=== PATIENT | female | born 1985 | race Hispanic/Latino ===

== ENCOUNTER 2023-02-01 20:38 | Inpatient (IN) | payer OTHER ==
[~2023-02-01] VITALS: Ht 144.8 cm; Wt 109.0 kg
[2023-02-01 20:54] VITALS: BP 135/60
[2023-02-01 21:21] VITALS: BP 135/60
[2023-02-01 22:13] LABS: BASOPHILS % (AUTO) 0.3 % (0.0-5.0); HEMATOCRIT 40.6 % (36-48); LYMPHOCYTES % (AUTO) 7.9 % (21.0-51.0); MEAN CORPUSCULAR HEMOGLOBIN 27.6 pg (27.0-33.0); MEAN CORPUSCULAR HGB CONC 33.3 g/dL (32.0-36.0); NEUTROPHILS % (AUTO) 88.3 % (40.0-77.0); PLATELET COUNT (AUTO) 244 K/uL (130-400); RED BLOOD CELL COUNT(AUTO) 4.89 MIL/uL (4.00-5.50); RED CELL DISTRIBUTION WIDTH 14.5 % (11.0-15.5); WHITE BLOOD COUNT (AUTO) 25.6 K/uL (4.8-10.8)
[2023-02-01] MEDS: MORPHINE 4 MG SYG IV PRN (22:13)
[2023-02-01] MEDS: LACTATED RINGERS 1000ML 1,000 ML IV SCH (22:13)
[2023-02-01] MEDS: ACETAMINOPHEN 325 MG TAB PO PRN (22:14)
[2023-02-01 22:25] LABS: INR 1.23 (0.85-1.15); PROTHROMBIN TIME 13.3 SEC (9.6-11.6)
[2023-02-01 22:27] LABS: PARTIAL THROMBOPLASTIN TIME 33.3 SEC (26.3-35.5)
[2023-02-01 22:40] LABS: CREATININE 1.2 mg/dL (0.5-1.5); MAGNESIUM 1.8 mg/dL (1.80-2.40); PHOSPHORUS 2.3 mg/dL (2.5-4.9); POTASSIUM 3.7 mmol/L (3.5-5.1)
[2023-02-01 22:51] LABS: APPEARANCE,URINE CLOUDY (CLEAR); BILIRUBIN,URINE NEGATIVE (NEGATIVE); COLOR,URINE LIGHT-ORANGE (YELLOW); GLUCOSE, URINE (UA) NEGATIVE (NEGATIVE); KETONES,URINE 5 mg/dL (NEGATIVE); LEUKOCYTE ESTERASE ,URINE 500 Leu/uL (NEGATIVE); NITRATE,URINE NEGATIVE (NEGATIVE); OCCULT BLOOD,URINE LARGE (NEGATIVE); PH,URINE 6.5 (5.0-8.0); PROTEIN,URINE 200 mg/dL (NEGATIVE); UROBILINOGEN,URINE 0.2 mg/dL (0.2-1.0)
[2023-02-01 22:57] LABS: BACTERIA,URINE FEW /HPF (None Seen); MUCUS,URINE RARE LPF (None Seen); RBC,URINE TNTC /HPF (0-1); SQUAMOUS EPITHELIAL CELL,UR FEW /HPF (0-2); WBC,URINE TNTC /HPF (0-1)
[2023-02-02] VITALS (7 sets, daily range): BP systolic 103–147; BP diastolic 46–80
[2023-02-02] MEDS: ACETAMINOPHEN 325 MG TAB PO PRN ×2 (03:27→20:02)
[2023-02-02 04:18] LABS: BASOPHILS % (AUTO) 0.3 % (0.0-5.0); EOSINOPHILS % (AUTO) 0.1 % (0.0-8.0); HEMATOCRIT 37.8 % (36-48); LYMPHOCYTES % (AUTO) 10.2 % (21.0-51.0); MEAN CORPUSCULAR HEMOGLOBIN 27.1 pg (27.0-33.0); MEAN CORPUSCULAR HGB CONC 32.3 g/dL (32.0-36.0); MEAN CORPUSCULAR VOLUME 83.8 fL (79-99); MONOCYTES % (AUTO) 3.3 % (3.0-13.0); NEUTROPHILS % (AUTO) 85.5 % (40.0-77.0); PLATELET COUNT (AUTO) 272 K/uL (130-400); RED BLOOD CELL COUNT(AUTO) 4.51 MIL/uL (4.00-5.50); RED CELL DISTRIBUTION WIDTH 14.6 % (11.0-15.5); WHITE BLOOD COUNT (AUTO) 22.1 K/uL (4.8-10.8)
[2023-02-02 04:46] LABS: CREATININE 1.1 mg/dL (0.5-1.5); POTASSIUM 3.9 mmol/L (3.5-5.1)
[2023-02-02] MEDS: ENOXAPARIN SODIUM 40 MG/0.4 ML SYRINGE SQ SCH (08:29)
[2023-02-02] MEDS: FAMOTIDINE 20MG VIAL IV SCH ×2 (08:29→20:03)
[2023-02-02] MEDS: MORPHINE 4 MG SYG IV PRN ×2 (08:29→17:12)
[2023-02-02] MEDS: ONDANSETRON 4MG INJ IV PRN ×2 (08:31→17:12)
[2023-02-02] MEDS: KETOROLAC 30MG VIAL (30MG/ML) IVP PRN (11:58)
[2023-02-02 14:22] LABS: HEMATOCRIT 36.4 % (36-48); MEAN CORPUSCULAR HEMOGLOBIN 27.4 pg (27.0-33.0); MEAN CORPUSCULAR HGB CONC 32.7 g/dL (32.0-36.0); MEAN CORPUSCULAR VOLUME 83.7 fL (79-99); RED BLOOD CELL COUNT(AUTO) 4.35 MIL/uL (4.00-5.50); RED CELL DISTRIBUTION WIDTH 14.7 % (11.0-15.5); WHITE BLOOD COUNT (AUTO) 20.9 K/uL (4.8-10.8)
[2023-02-02] MEDS: LACTATED RINGERS 1000ML 1,000 ML IV SCH (14:23)
[2023-02-02] MEDS: ZOSYN 3.375GM +NS 50ML IVPB SCH ×2 (15:34→22:26)
[2023-02-02] MEDS: TAMSULOSIN HCL 0.4 MG CAP.ER.24H PO SCH (20:03)
[2023-02-03] VITALS (12 sets, daily range): BP systolic 118–149; BP diastolic 52–74
[2023-02-03] MEDS: KETOROLAC 30MG VIAL (30MG/ML) IVP PRN ×3 (00:03→20:16)
[2023-02-03] MEDS: LACTATED RINGERS 1000ML 1,000 ML IV SCH ×3 (02:34→22:34)
[2023-02-03] MEDS: ZOSYN 3.375GM +NS 50ML IVPB SCH ×3 (05:33→22:31)
[2023-02-03 06:03] LABS: INR 1.1 (0.85-1.15); PROTHROMBIN TIME 11.9 SEC (9.6-11.6)
[2023-02-03] MEDS: MORPHINE 2 MG SYG IV PRN ×2 (06:04→18:17)
[2023-02-03] MEDS: ENOXAPARIN SODIUM 40 MG/0.4 ML SYRINGE SQ SCH (09:00)
[2023-02-03] MEDS: FAMOTIDINE 20MG VIAL IV SCH ×2 (10:03→20:10)
[2023-02-03] MEDS ORDERED: IODIXANOL 320 MG/ML 100 ML VIAL ONE (11:14)
[2023-02-03] MEDS ORDERED: FENTANYL CITRATE PF 50 MCG/1 ML 2ML VIAL ONE (11:15)
[2023-02-03] MEDS ORDERED: MIDAZOLAM HCL 1 MG/ML 2ML VIAL ONE (11:15)
[2023-02-03] MEDS ORDERED: LIDOCAINE HCL 1% MDV 50ML VIAL ONE (11:15)
[2023-02-03] MEDS: ACETAMINOPHEN 325 MG TAB PO PRN ×2 (15:01→22:35)
[2023-02-03] MEDS: TAMSULOSIN HCL 0.4 MG CAP.ER.24H PO SCH (20:10)
[2023-02-03] MEDS: ONDANSETRON 4MG INJ IV PRN (22:34)
[2023-02-03] MEDS ORDERED: TRAMADOL HCL 50 MG TABLET PO ONE (23:00)
[2023-02-04] VITALS: BP 127/61
[2023-02-04 03:54] VITALS: BP 152/70
[2023-02-04] MEDS: MEROPENEM 500 MG VIAL IVP SCH ×3 (03:56→20:36)
[2023-02-04] MEDS: ACETAMINOPHEN 325 MG TAB PO PRN ×2 (03:57→08:23)
[2023-02-04] MEDS ORDERED: LACTATED RINGERS IV ONE (04:00)
[2023-02-04 06:18] LABS: BASOPHILS % (AUTO) 0.2 % (0.0-5.0); EOSINOPHILS % (AUTO) 0.1 % (0.0-8.0); HEMATOCRIT 31.9 % (36-48); MEAN CORPUSCULAR HEMOGLOBIN 27.6 pg (27.0-33.0); MEAN CORPUSCULAR HGB CONC 33.9 g/dL (32.0-36.0); MEAN CORPUSCULAR VOLUME 81.6 fL (79-99); MONOCYTES % (AUTO) 2.7 % (3.0-13.0); NEUTROPHILS % (AUTO) 87.5 % (40.0-77.0); PLATELET COUNT (AUTO) 259 K/uL (130-400); RED BLOOD CELL COUNT(AUTO) 3.91 MIL/uL (4.00-5.50); RED CELL DISTRIBUTION WIDTH 14.6 % (11.0-15.5)
[2023-02-04 06:37] LABS: ALBUMIN 2.1 g/dL (3.5-5.0); CREATININE 0.9 mg/dL (0.5-1.5); MAGNESIUM 1.8 mg/dL (1.80-2.40); POTASSIUM 3.3 mmol/L (3.5-5.1); TOTAL PROTEIN, SERUM 6.2 g/dL (6.0-8.3)
[2023-02-04 08:00] VITALS: BP 127/68
[2023-02-04] MEDS: FAMOTIDINE 20MG VIAL IV SCH ×2 (08:11→20:36)
[2023-02-04] MEDS: ENOXAPARIN SODIUM 40 MG/0.4 ML SYRINGE SQ SCH (08:12)
[2023-02-04] MEDS: LACTATED RINGERS 1000ML 1,000 ML IV SCH ×2 (08:34→18:34)
[2023-02-04] MEDS ORDERED: LOPERAMIDE HCL 2 MG CAP PO PRN (10:00)
[2023-02-04] MEDS ORDERED: LOPERAMIDE 1 MG/7.5 ML UDCUP PO PRN (10:30)
[2023-02-04] MEDS ORDERED: LOPERAMIDE 1 MG/7.5 ML UDCUP PO SCH (10:30)
[2023-02-04] MEDS: HYDROMORPHONE 0.5 MG SYG (0.5MG/0.5ML) IVP PRN (11:48)
[2023-02-04 11:49] VITALS: BP 135/62
[2023-02-04 11:56] LABS: ABG BASE EXCESS 3.6 mmol/L (-2.0-3.0); ABG OXYGEN SATURATION 88.7 % (95.0-99.0); ABG PCO2 33 mmHg (32-45)
[2023-02-04] MEDS ORDERED: AZITHROMYCIN 500MG+NS 250ML IVPB SCH (12:00)
[2023-02-04] MEDS: IPRATROPIUM/ALBUTEROL SULFATE 3 ML SOLUTION IH SCH ×4 (12:43→23:30)
[2023-02-04] MEDS: AZITHROMYCIN IVPB SCH (13:00)
[2023-02-04] MEDS: NACL 0.9% IVPB SCH (13:00)
[2023-02-04] MEDS ORDERED: AZITHROMYCIN 500MG+NS 250ML 250 ML ONE (14:20)
[2023-02-04] MEDS: SOLU-MEDROL 40MG VIAL IVP SCH ×2 (15:02→20:42)
[2023-02-04 16:00] VITALS: BP 108/68
[2023-02-04] MEDS ORDERED: POTASSIUM CHLORIDE 20MEQ/100ML 100 ML IV PRN (17:00)
[2023-02-04] MEDS ORDERED: LIDOCAINE HCL-MPF 1% 2ML VIAL IV PRN (17:00)
[2023-02-04] MEDS ORDERED: MAGNESIUM 2GM PREMIX 50ML 50 ML IV PRN (17:00)
[2023-02-04] MEDS ORDERED: POTASSIUM CHLORIDE 10% ELIXIR 20 MEQ/15 ML UDCUP PO PRN (17:00)
[2023-02-04] MEDS: KCL 20 MEQ ERTAB PO PRN ×3 (17:08→23:57)
[2023-02-04 20:00] VITALS: BP 111/49
[2023-02-04] MEDS: TAMSULOSIN HCL 0.4 MG CAP.ER.24H PO SCH (20:36)
[2023-02-04] MEDS: KETOROLAC 30MG VIAL (30MG/ML) IVP PRN (20:37)
[2023-02-04] MEDS: CLONAZEPAM 0.5 MG TABLET PO SCH (20:37)
[2023-02-05] VITALS: BP 106/73
[2023-02-05] MEDS: LACTATED RINGERS 1000ML 1,000 ML IV SCH ×3 (03:35→11:59)
[2023-02-05] MEDS: SOLU-MEDROL 40MG VIAL IVP SCH (03:35)
[2023-02-05] MEDS: MEROPENEM 500 MG VIAL IVP SCH ×3 (03:35→19:52)
[2023-02-05 04:00] VITALS: BP 99/69
[2023-02-05 06:00] LABS: BASOPHILS % (AUTO) 0.2 % (0.0-5.0); HEMATOCRIT 32.1 % (36-48); LYMPHOCYTES % (AUTO) 10.5 % (21.0-51.0); MEAN CORPUSCULAR HEMOGLOBIN 27.1 pg (27.0-33.0); MEAN CORPUSCULAR HGB CONC 32.4 g/dL (32.0-36.0); MEAN CORPUSCULAR VOLUME 83.6 fL (79-99); NEUTROPHILS % (AUTO) 85.6 % (40.0-77.0); PLATELET COUNT (AUTO) 352 K/uL (130-400); RED BLOOD CELL COUNT(AUTO) 3.84 MIL/uL (4.00-5.50); RED CELL DISTRIBUTION WIDTH 15.1 % (11.0-15.5); WHITE BLOOD COUNT (AUTO) 10.1 K/uL (4.8-10.8)
[2023-02-05 06:19] LABS: ALBUMIN 2.1 g/dL (3.5-5.0); MAGNESIUM 2.4 mg/dL (1.80-2.40); POTASSIUM 3.9 mmol/L (3.5-5.1); TOTAL PROTEIN, SERUM 6.5 g/dL (6.0-8.3)
[2023-02-05] MEDS: IPRATROPIUM/ALBUTEROL SULFATE 3 ML SOLUTION IH SCH (07:06)
[2023-02-05 08:00] VITALS: BP 125/71
[2023-02-05] MEDS: FAMOTIDINE 20MG VIAL IV SCH ×2 (08:33→19:52)
[2023-02-05] MEDS: ENOXAPARIN SODIUM 40 MG/0.4 ML SYRINGE SQ SCH (08:34)
[2023-02-05] MEDS ORDERED: ALBUTEROL 0.083% 2.5 MG/3 ML INH IH PRN (11:00)
[2023-02-05 12:00] VITALS: BP 108/51
[2023-02-05] MEDS: NACL 0.9% IVPB SCH (14:25)
[2023-02-05] MEDS: AZITHROMYCIN IVPB SCH (14:25)
[2023-02-05] MEDS: HYDROMORPHONE 0.5 MG SYG (0.5MG/0.5ML) IVP PRN (15:29)
[2023-02-05 16:00] VITALS: BP 124/77
[2023-02-05] MEDS: CLONAZEPAM 0.5 MG TABLET PO SCH (19:52)
[2023-02-05] MEDS: TAMSULOSIN HCL 0.4 MG CAP.ER.24H PO SCH (19:52)
[2023-02-05 20:00] VITALS: BP 100/52
[2023-02-06] VITALS: BP 104/53
[2023-02-06] MEDS: HYDROMORPHONE 0.5 MG SYG (0.5MG/0.5ML) IVP PRN ×3 (01:41→22:54)
[2023-02-06] MEDS: MEROPENEM 500 MG VIAL IVP SCH ×3 (03:31→20:42)
[2023-02-06 04:00] VITALS: BP 122/78
[2023-02-06] MEDS: ACETAMINOPHEN 325 MG TAB PO PRN ×2 (04:10→21:17)
[2023-02-06 06:01] LABS: BASOPHILS % (AUTO) 0.2 % (0.0-5.0); EOSINOPHILS % (AUTO) 0.4 % (0.0-8.0); LYMPHOCYTES % (AUTO) 20.9 % (21.0-51.0); MEAN CORPUSCULAR HGB CONC 32.7 g/dL (32.0-36.0); MEAN CORPUSCULAR VOLUME 82.6 fL (79-99); NEUTROPHILS % (AUTO) 73.7 % (40.0-77.0); PLATELET COUNT (AUTO) 383 K/uL (130-400); RED BLOOD CELL COUNT(AUTO) 3.63 MIL/uL (4.00-5.50); RED CELL DISTRIBUTION WIDTH 15.1 % (11.0-15.5)
[2023-02-06 06:16] LABS: ALBUMIN 1.9 g/dL (3.5-5.0); CREATININE 0.8 mg/dL (0.5-1.5); POTASSIUM 3.6 mmol/L (3.5-5.1); TOTAL PROTEIN, SERUM 5.4 g/dL (6.0-8.3)
[2023-02-06] MEDS: KCL 20 MEQ ERTAB PO PRN (06:33)
[2023-02-06 08:00] VITALS: BP 120/67
[2023-02-06] MEDS: FAMOTIDINE 20MG VIAL IV SCH ×2 (08:58→20:45)
[2023-02-06] MEDS: ENOXAPARIN SODIUM 40 MG/0.4 ML SYRINGE SQ SCH (08:58)
[2023-02-06 11:26] VITALS: BP 104/49
[2023-02-06] MEDS: AZITHROMYCIN IVPB SCH (14:38)
[2023-02-06] MEDS: NACL 0.9% IVPB SCH (14:38)
[2023-02-06 16:00] VITALS: BP 125/74
[2023-02-06 20:00] VITALS: BP 132/75
[2023-02-06] MEDS: CLONAZEPAM 0.5 MG TABLET PO SCH (20:42)
[2023-02-06] MEDS: TAMSULOSIN HCL 0.4 MG CAP.ER.24H PO SCH (20:44)
[2023-02-07] VITALS: BP 127/62
[2023-02-07 04:00] VITALS: BP 128/65
[2023-02-07] MEDS: MEROPENEM 500 MG VIAL IVP SCH (04:33)
[2023-02-07 05:22] LABS: BASOPHILS % (AUTO) 0.5 % (0.0-5.0); EOSINOPHILS % (AUTO) 2.6 % (0.0-8.0); HEMATOCRIT 33.4 % (36-48); LYMPHOCYTES % (AUTO) 28.6 % (21.0-51.0); MEAN CORPUSCULAR HEMOGLOBIN 27.3 pg (27.0-33.0); MEAN CORPUSCULAR HGB CONC 32.6 g/dL (32.0-36.0); MEAN CORPUSCULAR VOLUME 83.5 fL (79-99); MONOCYTES % (AUTO) 4.2 % (3.0-13.0); PLATELET COUNT (AUTO) 476 K/uL (130-400); RED CELL DISTRIBUTION WIDTH 15.2 % (11.0-15.5); WHITE BLOOD COUNT (AUTO) 11.4 K/uL (4.8-10.8)
[2023-02-07 05:54] LABS: % IRON SATURATION 9.5 % (22-44)
[2023-02-07 06:12] LABS: CREATININE 0.9 mg/dL (0.5-1.5); POTASSIUM 3.7 mmol/L (3.5-5.1); TOTAL PROTEIN, SERUM 5.9 g/dL (6.0-8.3)
[2023-02-07] MEDS: HYDROMORPHONE 0.5 MG SYG (0.5MG/0.5ML) IVP PRN (07:01)
[2023-02-07 07:30] VITALS: BP 133/56
[2023-02-07] MEDS ORDERED: TAMS-1 PO (08:19)
[2023-02-07] MEDS: FAMOTIDINE 20MG VIAL IV SCH (09:12)
[2023-02-07] MEDS: ENOXAPARIN SODIUM 40 MG/0.4 ML SYRINGE SQ SCH (09:13)
== END 2023-02-07 13:06 | disposition home or self-care (01) | DRG 871 ==
LOC: 3BH 20:38 → INTOOBSV 20:38 → OBSVTOIN 20:38 → 3DH 21:03
PROVIDERS: ADMIT Internal Medicine; ATTEND Internal Medicine
PROC: 0T9030Z Drainage of Right Kidney with Drainage Device, Percutaneous Approach (ICD-10-PCS; principal; 2023-02-03)
DX: A41.50 Gram-negative sepsis, unspecified (principal); J18.9 Pneumonia, unspecified organism; J80 Acute respiratory distress syndrome; N13.6 Pyonephrosis; E44.0 Moderate protein-calorie malnutrition; Z68.43 Body mass index [BMI] 50.0-59.9, adult; Z20.822 Contact with and (suspected) exposure to COVID-19; E87.6 Hypokalemia; B96.1 Klebsiella pneumoniae [K. pneumoniae] as the cause of diseases classified elsewhere; E66.01 Morbid (severe) obesity due to excess calories; Z93.6 Other artificial openings of urinary tract status; Z83.438 Family history of other disorder of lipoprotein metabolism and other lipidemia; Z82.49 Family history of ischemic heart disease and other diseases of the circulatory system; Z51.5 Encounter for palliative care
CPT/HCPCS: 10030; 36415; 36600; 50432; 71045; 80048; 80053; 81001; 82728; 82803; 83540; 83550; 83605; 83735; 83880; 84100; 84145; 85025; 85027; 85045; 85610; 85730; 86850; 86900; 86901; 87040; 87071; 87088; 87205; 87635; 93005; 94640; 94664; 99156; 99157; C1729; C1894; G0378; J0456; J1170; J1644; J1650; J1885; J2185; J2250; J2270; J2405; J2543; J2920; J3010; J3475; J3490; J7050; J7120; Q9967

== ENCOUNTER 2023-03-13 20:31 | Emergency (ER) | payer OTHER ==
[~2023-03-13] VITALS: Ht 144.8 cm; Wt 105.2 kg
[~2023-03-13 20:31] MED LIST: TAMS-1 PO
[2023-03-13 23:18] LABS: BASOPHILS % (AUTO) 0.7 % (0.0-5.0); HEMATOCRIT 39.7 % (36-48); LYMPHOCYTES % (AUTO) 30.8 % (21.0-51.0); MEAN CORPUSCULAR HEMOGLOBIN 27.3 pg (27.0-33.0); MEAN CORPUSCULAR HGB CONC 32.7 g/dL (32.0-36.0); MEAN CORPUSCULAR VOLUME 83.2 fL (79-99); MONOCYTES % (AUTO) 4.6 % (3.0-13.0); NEUTROPHILS % (AUTO) 59.5 % (40.0-77.0); PLATELET COUNT (AUTO) 282 K/uL (130-400); RED BLOOD CELL COUNT(AUTO) 4.77 MIL/uL (4.00-5.50); RED CELL DISTRIBUTION WIDTH 14.2 % (11.0-15.5); WHITE BLOOD COUNT (AUTO) 10.1 K/uL (4.8-10.8)
[2023-03-13 23:31] LABS: ALBUMIN 3.7 g/dL (3.5-5.0); CREATININE 0.9 mg/dL (0.5-1.5); POTASSIUM 3.7 mmol/L (3.5-5.1); TOTAL PROTEIN, SERUM 7.9 g/dL (6.0-8.3)
[2023-03-14 00:21] LABS: APPEARANCE,URINE CLEAR (CLEAR); BILIRUBIN,URINE NEGATIVE (NEGATIVE); COLOR,URINE COLORLESS (YELLOW); GLUCOSE, URINE (UA) NEGATIVE (NEGATIVE); KETONES,URINE NEGATIVE (NEGATIVE); LEUKOCYTE ESTERASE ,URINE 250 Leu/uL (NEGATIVE); NITRATE,URINE NEGATIVE (NEGATIVE); OCCULT BLOOD,URINE NEGATIVE (NEGATIVE); PROTEIN,URINE NEGATIVE (NEGATIVE); UROBILINOGEN,URINE 0.2 mg/dL (0.2-1.0)
[2023-03-14 00:24] LABS: MUCUS,URINE RARE LPF (None Seen); SQUAMOUS EPITHELIAL CELL,UR RARE /HPF (0-2)
[2023-03-14] MEDS ORDERED: CEPH500B PO (00:37)
[2023-03-14] MEDS ORDERED: ACETAMINOPHEN WITH CODEINE 1 TAB TAB PO ONE (01:00)
[2023-03-14 01:05] VITALS: BP 126/69
[2023-03-14] MEDS ORDERED: TRAM50TA4 PO (11:13)
[2023-03-14] MEDS ORDERED: TRAZ-185 PO (11:14)
== END 2023-03-14 01:06 | disposition home or self-care (01) ==
LOC: EDH 20:31
DX: N39.0 Urinary tract infection, site not specified (principal); Z93.6 Other artificial openings of urinary tract status; Z98.890 Other specified postprocedural states
CPT/HCPCS: 36415; 76770; 80053; 81001; 83690; 85025; 87088